=== PATIENT | female | born 1990 | race Caucasian/White ===

== ENCOUNTER 2016-06-12 13:19 | Emergency (ER) | payer OTHER ==
[~2016-06-12] VITALS: Ht 160 cm; Wt 89.0 kg
[2016-06-12 13:21] VITALS: Ht 160 cm; Wt 89.0 kg
--- NOTE | 2016-06-12 13:51 | ERD ---
ER Documentation Chief Complaint Date/Time DATE: 06/12/16 TIME: 13:49 Chief Complaint ap intermittent x 1 year HPI This a 25-year-old female who presents to the emergency department today complaining of intermittent abdominal pain for the past year. Patient states it is located more in the top part of her stomach and that it goes around to her back sometimes. States that she has seen her primary care doctor at the clinic was told that she "may have pulled a muscle". States that she has some nausea sometimes but denies any fevers or chills, dysuria. States that it is the same whether she eats food or not. States that she takes oral contraceptive pills. ROS All systems reviewed and are negative except as per history of present illness. Medications Home Meds Active Scripts Acetaminophen* (Tylophen*) 500 Mg Capsule, 1 CAP PO Q6H Y for PAIN AND OR ELEVATED TEMP, #30 CAP Prov:STEFFI LOZADA PA-C 06/12/16 Famotidine* (Pepcid*) 20 Mg Tablet, 20 MG PO BID for 14 Days, TAB Prov:STEFFI LOZADA PA-C 06/12/16 Glimepiride* (Amaryl*) 1 Mg Tablet, 1 MG PO WITH BREAKFAST, #30 TAB Prov:STEFFI LOZADA PA-C 06/12/16 Allergies Allergies: Coded Allergies: No Known Allergy (Unverified , 06/12/16) Physical Exam Vitals Vital Signs Date Time Temp Pulse Resp B/P Pulse Ox O2 Delivery O2 Flow Rate FiO2 06/12/16 13:21 98.1 109 20 134/88 99 Physical Exam Const: Obese, no acute distress Head: Atraumatic Eyes: Normal Conjunctiva ENT: Normal External Ears, Nose and Mouth. Neck: Full range of motion..~ No meningismus. Resp: Clear to auscultation bilaterally Cardio: Regular rate and rhythm, no murmurs Abd: Soft, epigastric and right upper quadrant tenderness non distended. Normal bowel sounds. No right lower quadrant pain. No left lower quadrant pain. Skin: No petechiae or rashes Back: No midline or flank tenderness Ext: No cyanosis, or edema Neur: Awake and alert Psych: Normal Mood and Affect Result Diagram: 06/12/16 1355 06/12/16 1355 Results 24 hrs Laboratory Tests Test 06/12/16 13:55 06/12/16 14:02 White Blood Count 9.610^3/ul Red Blood Count 4.7210^6/ul Hemoglobin 14.2g/dl Hematocrit 42.5% Mean Corpuscular Volume 90.0fl Mean Corpuscular Hemoglobin 30.1pg Mean Corpuscular Hemoglobin Concent 33.4g/dl Red Cell Distribution Width 11.7% Platelet Count 83875^3/UL Mean Platelet Volume 10.5fl Neutrophils % 71.9% Lymphocytes % 20.7% Monocytes % 4.8% Eosinophils % 1.8% Basophils % 0.4% Nucleated Red Blood Cells % 0.0/100WBC Neutrophils # 6.910^3/ul Lymphocytes # 2.010^3/ul Monocytes # 0.510^3/ul Eosinophils # 0.210^3/ul Basophils # 0.010^3/ul Nucleated Red Blood Cells # 0.010^3/ul Sodium Level 139mmol/L Potassium Level 4.3mmol/L Chloride Level 99mmol/L Carbon Dioxide Level 26mmol/L Anion Gap 18 Blood Urea Nitrogen 13mg/dl Creatinine 0.50mg/dl Glucose Level 294mg/dl Calcium Level 9.6mg/dl Total Bilirubin 0.3mg/dl Direct Bilirubin 0.00mg/dl Indirect Bilirubin 0.3mg/dl Aspartate Amino Transf (AST/SGOT) 71IU/L Alanine Aminotransferase (ALT/SGPT) 38IU/L Alkaline Phosphatase 80IU/L Total Protein 7.8g/dl Albumin 4.2g/dl Globulin 3.60g/dl Albumin/Globulin Ratio 1.16 Lipase 224U/L Bedside Urine pH (LAB) 5.5 Bedside Urine Protein (LAB) 1+ Bedside Urine Glucose (UA) 0.50% Bedside Urine Ketones (LAB) 2+ Bedside Urine Blood Trace-intact Bedside Urine Nitrite (LAB) Negative Bedside Urine Leukocyte Esterase (L Negative DIAGNOSTIC IMAGING REPORT Patient: CONSUELO QUEEN : 1990 Age: 25 Sex: F MR #: [id number] DOS: 06/12/16 0000 Ordering MD: STEFFI LOZADA PA-C Location: [facility] Room/Bed: PROCEDURE: US Abdomen. CLINICAL INDICATION: abdominal pain TECHNIQUE: Multiple real-time images were acquired of the patient's right upper quadrant abdomen and retroperitoneum utilizing a high resolution transducer. COMPARISON: None FINDINGS: The liver demonstrates increased echogenicity. The liver is enlarged in size and no focal solid lesions are seen. The liver measures 20.9 cm in length. The portal vein is patent with normal direction of flow. No intrahepatic biliary dilatation is seen. No gallstones are identified within the gallbladder. There is no pericholecystic fluid or gallbladder wall thickening. The common bile duct measures 3 mm in maximal dimension. The visualized portions of the pancreas are unremarkable. The tail of the pancreas is not seen. No free fluid is identified. The right kidney is normal in size, and demonstrate normal echogenicity and cortical thickness. The right kidney measures 11 cm in long dimension. There is no evidence of hydronephrosis. There are no kidney stones. RPTAT: AA IMPRESSION: Mild hepatomegaly with diffuse fatty infiltration. No evidence of gallstones. .Billy Mancuso MD, MD Date Time Electronically viewed and signed by .Billy Mancuso MD, MD on 06/12/2016 14: 29 .S/ CC: STEFFI LOZADA PA-C Procedures/[facility] This a 25-year-old female who presents the emergency department today complaining of upper abdominal pain for the past year that is been intermittent. Patient states that it worsened last night and over the last couple of days. On physical exam patient has epigastric and right upper quadrant tenderness. Did obtain laboratory work as well as a UA, urine and right upper quadrant ultrasound. Laboratory work shows no elevated white blood cell count. She is not anemic. Platelets are within normal limits. Electrolytes are within normal limits. Glucose is elevated at 294. Liver function is mildly elevated. Lipase is within normal limits. UA is negative for infection. There is glucose in patient's urine with 2+ ketones Urine test is negative Right upper quadrant ultrasound shows mild hepatomegaly with diffuse fatty infiltration. There is no evidence of gallstones. There is no free fluid. There is no pericholecystic fluid or gallbladder wall thickening. Common bile duct measures 3 mm in maximal extension. There are no kidney stones on the right side. There is no evidence of hydronephrosis. Patient has no lower abdominal pain and no specific tenderness at McBurney's. Low suspicion for acute surgical abdomen at this time. Low suspicion for ectopic , tubal ovarian abscess, ovarian torsion. Patient has had intermittent abdominal pain for the past year. Her abdominal pain is of uncertain etiology. Patient does have a new diagnosis of diabetes and her lupus in her urine as well as elevated blood sugar. Patient had indicated that she had been told she was prediabetic in the past but did not follow-up on it. She did state that she had taken metformin in the past for her PCO S but had side effects such as diarrhea and abdominal cramping with it and stopped taking it at that time. Patient was given a prescription for glimepiride instead. She was instructed that she need to follow-up with her primary care doctor for further evaluation and management of that. Patient declined pain medication here in the emergency department. I did give her a prescription for Tylenol for home. I also gave her a prescription for Pepcid for any epigastric pain that she may have. At this time the patient is stable for discharge and outpatient management. Patient should follow up with their PCP in the next 1-2 days. They may return to the emergency department sooner for any persistent or worsening of symptoms. Patient understood and agreed with the plan. Discussed the patient with Dr. Macias and he is in agreement with the plan Departure Diagnosis: Primary Impression: Abdominal pain Abdominal location: right upper quadrant Qualified Code: R10.11 - Right upper quadrant abdominal pain Additional Impression: Diabetes Diabetes mellitus type: other specified (including JOSEPH) Diabetes mellitus complication status: without complication Diabetes mellitus senior living insulin use: without senior living use Qualified Code: E13.9 - Other specified diabetes mellitus without complication, without long-term current use of insulin Condition: STEFFI Juarez PA-C Jun 12, 2016 13:51
[2016-06-12 14:02] LABS: URINE BLOOD (Dip) POC Trace-intact (NEGATIVE)
[2016-06-12 14:02] LABS: ADD SCAN DIFF NO
[2016-06-12 14:06] LABS: BASOPHILS % 0.4 % (0.0-2.0); EOSINOPHILS # 0.2 10^3/ul (0.0-0.5); EOSINOPHILS % 1.8 % (0.0-7.0); HEMATOCRIT 42.5 % (37.0-47.0); HEMOGLOBIN 14.2 g/dl (12.0-16.0); LYMPHOCYTES % 20.7 % (15.0-51.0); MEAN CORPUSCULAR HEMOGLOBIN 30.1 pg (29.0-33.0); MEAN CORPUSCULAR HGB CONC 33.4 g/dl (32.0-37.0); MEAN PLATELET VOLUME 10.5 fl (7.4-10.4); MONOCYTE # 0.5 10^3/ul (0.3-0.9); MONOCYTES % 4.8 % (0.0-11.0); NEUTROPHIL # 6.9 10^3/ul (1.6-7.5); NEUTROPHILS % 71.9 % (39.0-77.0); PLATELET COUNT 316 10^3/UL (140-415); RED BLOOD COUNT 4.72 10^6/ul (4.20-5.40); RED CELL DISTRIBUTION WIDTH 11.7 % (11.5-14.5); WHITE BLOOD COUNT 9.6 10^3/ul (4.8-10.8)
[2016-06-12 14:26] LABS: ALBUMIN 4.2 g/dl (3.3-4.9)
[2016-06-12 14:27] LABS: POTASSIUM 4.3 mmol/L (3.5-5.1)
[2016-06-12 14:29] LABS: ALBUMIN/GLOBULIN RATIO 1.16; BILIRUBIN,INDIRECT 0.3 mg/dl (0-1.1); BILIRUBIN,TOTAL 0.3 mg/dl (0.2-1.3); CREATININE 0.5 mg/dl (0.44-1.00); TOTAL PROTEIN 7.8 g/dl (6.1-8.1)
--- NOTE | 2016-06-12 14:29 | RADRPT ---
PROCEDURE: US Abdomen. CLINICAL INDICATION: abdominal pain TECHNIQUE: Multiple real-time images were acquired of the patient's right upper quadrant abdomen a nd retroperitoneum utilizing a high resolution transducer. COMPARISON: None FINDINGS: The liver demonstrates increased echogenicity. The liver is enlarged in size and no focal solid les ions are seen. The liver measures 20.9 cm in length. The portal vein is patent with normal direction of flow. No intrahepatic biliary dilatation is seen. No gallstones are identified within the gallbladder. There is no pericholecystic fluid or gallbladd er wall thickening. The common bile duct measures 3 mm in maximal dimension. The visualized portions of the pancreas are unremarkable. The tail of the pancreas is not seen. No free fluid is identified. The right kidney is normal in size, and demonstrate normal echogenicity and cortical thickness. The right kidney measures 11 cm in long dimension. There is no evidence of hydronephrosis. There are n o kidney stones. RPTAT: AA IMPRESSION: Mild hepatomegaly with diffuse fatty infiltration. No evidence of gallstones. .Billy Mancuso MD, Date Time Electronically viewed and signed by .Billy Mancuso MD, on 06/12/2016 14:29 .S/
[2016-06-12 14:30] LABS: CALCIUM 9.6 mg/dl (8.4-10.2)
[2016-06-12] MEDS ORDERED: GLIM1TAB PO (14:58)
[2016-06-12] MEDS ORDERED: ACET500C5 PO (14:59)
[2016-06-12] MEDS ORDERED: FAMO-18 PO (14:59)
== END 2016-06-12 15:10 | disposition home or self-care (01) ==
LOC: FTE 13:19
DX: R10.11 Right upper quadrant pain (principal); E13.9 Other specified diabetes mellitus without complications; Z79.84 Long term (current) use of oral hypoglycemic drugs
CPT/HCPCS: 76705; 80053; 81003; 83690; 85025